=== PATIENT | male | born 1995 | race African-American/Black ===

== ENCOUNTER 2019-05-05 19:08 | Emergency (ER) | payer OTHER ==
[~2019-05-05] VITALS: Ht 175.3 cm; Wt 136.1 kg
--- NOTE | 2019-05-05 19:35 | NUR ---
ED Nurse Note: pt walked in c/o nasal congestion for couple of months, pt reports pain in the orbital and nasal area when he sneezes alot. pt denies cough nor fever. pt aA&ox4, skin warm and dry, resp even and unlabored on RA, noted mild nasal congestion, airway intact, will cont monitor.
[2019-05-05 19:36] VITALS: BP 115/76
--- NOTE | 2019-05-05 19:56 | Emergency Room Report ---
History of Present Illness General Chief Complaint: Flu Like Symptoms Source: Patient Present Illness HPI 24 YO male presents to the ED c/o nasal congestion and sneezing. Reports has been going on for years. He has never been evaluated for it. Does not use any OTC medications. Denies fevers or chills. PT. reports increased pressure in the sinuses and ears. He denies pain. Denies neck pain /stiffness, or photophobia. Denies purulent d/c. No other aggravating or relieving factors. Allergies: Coded Allergies: No Known Allergies (Unverified , 05/05/19) Patient History Past Medical History: see triage record Past Surgical History: none Pertinent Family History: none Immunizations: UTD Reviewed Nursing Documentation: PMH: Agreed; PSxH: Agreed Nursing Documentation-PMH Past Medical History: No Stated History Review of Systems All Other Systems: negative except mentioned in HPI Physical Exam Vital Signs Date Time Temp Pulse Resp B/P (MAP) Pulse Ox O2 Delivery O2 Flow Rate FiO2 05/05/19 19:20 98.1 68 16 115/76 (89) 96 Room Air Sp02 EP Interpretation: reviewed, normal General Appearance: no apparent distress, alert, GCS 15, non-toxic Head: normocephalic, atraumatic Eyes: bilateral eye normal inspection, bilateral eye PERRL, bilateral eye EOMI ENT: hearing grossly normal, normal pharynx, normal voice, TMs + canals normal , uvula midline, moist mucus membranes, nasal congestion - bilaterally, clear rhinorrhea, other - TTP to the bilateral frontal and maxillary sinuses. Neck: full range of motion, no meningismus, no bony tend Respiratory: chest non-tender, lungs clear, normal breath sounds, no respiratory distress, no wheezing, speaking full sentences Cardiovascular #1: regular rate, rhythm, no edema Musculoskeletal: back normal, gait/station normal, normal range of motion, non- tender Neurologic: alert, oriented x3, responsive, motor strength/tone normal, sensory intact, speech normal, grossly normal Psychiatric: judgement/insight normal Skin: no rash Lymphatic: no adenopathy Medical Decision Making PA Attestation Dr. Bazzi is my supervising Physician whom patient management has been discussed with. Diagnostic Impression: Primary Impression: Rhinitis Qualified Codes: J30.9 - Allergic rhinitis, unspecified Additional Impression: Sinusitis chronic, frontal ER Course 24 YO male presents to the ED c/o nasal congestion and sneezing. Reports has been going on for years. He has never been evaluated for it. Does not use any OTC medications. Denies fevers or chills. PT. reports increased pressure in the sinuses and ears. He denies pain. Denies neck pain /stiffness, or photophobia. Denies purulent d/c. No other aggravating or relieving factors. Ddx considered but are not limited to URI, pneumonia, PE, strep pharyngitis, meningitis, Sinusitis, rhinitis Vital signs: Pt. is afebrile, the remaining VS are WNL H&PE are most consistent with chronic sinusitis/rhinitis most likely secondary to allergies. No meningeal signs, oropharynx is not involved, no evidence of bacterial infection at this time. Pt. NAD, non-toxic in appearance. ORDERS: none required at this time, the diagnosis is clinical ED INTERVENTIONS: None required at this time. -I do not identify an emergent condition at this time. With current presentation , pt. is stable for close outpatient follow up and conservative treatment. D/ w pt. to return promptly to ED with worsening or new symptoms.- Pt. verbalizes' understanding and agreement with proposed treatment plan. DISCHARGE: At this time pt. is stable for d/c to home. Will provide printed patient care instructions, and any necessary prescriptions. Care plan and follow up instructions have been discussed with the patient prior to discharge. Last Vital Signs Date Time Temp Pulse Resp B/P (MAP) Pulse Ox O2 Delivery O2 Flow Rate FiO2 05/05/19 19:36 98.1 68 16 115/76 96 Room Air Disposition: HOME, SELF-CARE Condition: Stable Scripts Cetirizine Hcl* (ZYRTEC*) 10 Mg Tablet 10 MG ORAL DAILY, #30 TAB 0 Refills Prov: Kiesha Gan 05/05/19 Oxymetazoline HCl (Afrin) 15 Ml [place] 2 SPRAYS NASAL TWICE A DAY, #15 SPRAY Do not use for more than 3 consecutive days Prov: Kiesha Gan 05/05/19 Referrals: [facility] Patient Instructions: Sinusitis, Child Additional Instructions: Take medications as directed. Do not use for more than 3 consecutive days Follow up with a Primary Care Provider in 3-5 days, even if your symptoms have resolved. --Please review list of primary care clinics, if you do not already have a primary care provider Return sooner to ED if new symptoms occur, or current symptoms become worse. - Please note that this Emergency Department Report was dictated using [employer] gig operator technology software, occasionally this can lead to erroneous entry secondary to interpretation by the dictation equipment. Kiesha Gan May 05, 2019 19:56
[2019-05-05] MEDS ORDERED: ZYRTEC10 MG ORAL (20:04)
[2019-05-05] MEDS ORDERED: AFRIN NASAL SPR30 ML NASAL (20:04)
[2019-05-05 20:10] VITALS: BP 115/76
--- NOTE | 2019-05-05 20:10 | NUR ---
ED Nurse Note: pt cleared to be d/c per er provider, pt discharge and aftercare instruction provided w/ prescription, pt education done via discussion and handout, pt advised to follow up with pcp or return to ed if changes in condition, vss, ambulatory w/ steady gait, pt verbalized understanding, pt left w/ all belongings.
== END 2019-05-05 21:10 | disposition home or self-care (01) ==
LOC: EMR 19:57
DX: J32.1 Chronic frontal sinusitis (principal); J30.9 Allergic rhinitis, unspecified
CPT/HCPCS: 99282

== ENCOUNTER 2020-04-21 22:23 | Emergency (ER) | payer OTHER ==
[~2020-04-21] VITALS: Ht 175.3 cm; Wt 145.1 kg
[~2020-04-21 22:23] MED LIST: AFRIN NASAL SPR30 ML NASAL; ZYRTEC10 MG ORAL
[2020-04-21 22:35] VITALS: BP 122/79
--- NOTE | 2020-04-21 22:35 | NUR ---
ED Nurse Note: Patient walked in from home d/t dry mouth for 4 weeks and urinary frequency. Patient aao x 4 and ambulatory with steady gait. Patient also c/o bilateral earache 01/27. Patient placed on wafer substrate tester. No acute distress noted during assessment.
--- NOTE | 2020-04-21 22:41 | Emergency Room Report ---
History of Present Illness General Chief Complaint: General Complaint Source: Patient Present Illness [facility] This is a morbidly obese 25-year-old male with no past medical history. He presents with chief complaint of dry mouth, thirsty, frequent urination. Onset for last few weeks but worse in the last week. [place] tired. No fever chills. Also his mouth very dry and irritated. He said it worse when he drink water because it matthews his mouth. He said he urinates frequently throughout the day. No family history of diabetes. Denies any other complaint. He said he has weight loss and last week. Allergies: Coded Allergies: No Known Allergies (Unverified , 04/21/20) COVID-19 Screening Contact w/high risk pt: No Experienced COVID-19 symptoms?: No COVID-19 Testing performed TAVERN OPERATOR: No Patient History Past Medical History: see triage record, old chart reviewed Past Surgical History: none Pertinent Family History: none Social History: Denies: smoking Immunizations: other Reviewed Nursing Documentation: PMH: Agreed; PSxH: Agreed Nursing Documentation-PMH Past Medical History: No Stated History Review of Systems Constitutional: Reports: malaise Eye: Denies: eye pain, blurred vision ENT: Denies: ear pain, nose congestion, throat swelling Respiratory: Denies: cough, shortness of breath Cardiovascular: Denies: chest pain, palpitations Gastrointestinal: Denies: abdominal pain, diarrhea, nausea, vomiting Musculoskeletal: Denies: back pain, joint pain Skin: Denies: rash Neurological: Denies: headache, numbness Endocrine: Reports: increased thirst, increased urine Hematologic/Lymphatic: Denies: easy bruising All Other Systems: negative except mentioned in HPI Physical Exam Vital Signs Date Time Temp Pulse Resp B/P (MAP) Pulse Ox O2 Delivery O2 Flow Rate FiO2 04/21/20 22:29 98.6 108 20 115/80 (92) 95 Room Air Vitals normal Sp02 EP Interpretation: reviewed, normal General Appearance: well appearing, no apparent distress, alert, obese Head: normocephalic, atraumatic Eyes: bilateral eye PERRL, bilateral eye EOMI ENT: hearing grossly normal, normal pharynx, dry mucus membranes, other - Tongue: Very dry with irritation Neck: full range of motion, supple, no meningismus Respiratory: chest non-tender, lungs clear, normal breath sounds Cardiovascular #1: regular rate, rhythm, no murmur Gastrointestinal: normal bowel sounds, non tender, no mass, no organomegaly, no bruit, non-distended Musculoskeletal: back normal, normal range of motion, gait/station normal Psychiatric: mood/affect normal Medical Decision Making Diagnostic Impression: Primary Impression: New onset type 2 diabetes mellitus Additional Impressions: Hyperglycemia due to type 2 diabetes mellitus Qualified Codes: E11.65 - Type 2 diabetes mellitus with hyperglycemia Morbid obesity with BMI of 45.0-49.9, adult UTI (urinary tract infection) Qualified Codes: N30.00 - Acute cystitis without hematuria ER Course This patient presents with symptom presents with new onset diabetes. Blood sugar is very high. He was 747. No evidence of DKA. He does have bacteria in his urine. I gave him Rocephin here. After 3 L of fluid and a total of 30 units of insulin, blood sugar is still very high. I discussed the case with Dr. Hays for the patient for transfer to [facility] for further work-up. Last Vital Signs Date Time Temp Pulse Resp B/P (MAP) Pulse Ox O2 Delivery O2 Flow Rate FiO2 04/21/20 22:29 98.6 108 20 115/80 (92) 95 Room Air Status: improved Disposition: SHORT-TERM HOSP Condition: Stable Chris Nicolas MD Apr 21, 2020 22:41
--- NOTE | 2020-04-21 22:50 | NUR ---
ED Nurse Note: Fingerstick glucose registered critical "HI" unknown numerical result, ERMD informed and aware.
--- NOTE | 2020-04-21 22:55 | NUR ---
ED Nurse Note: Blood and urine sent to lab
[2020-04-21 22:59] LABS: BASOPHILS % (AUTO) 1.9 % (0.0-2.0); EOSINOPHILS % (AUTO) 1.7 % (0.0-3.0); HEMATOCRIT 48.1 % (42.0-52.0); HEMOGLOBIN 15.5 G/DL (14.2-18.0); LYMPHOCYTES % (AUTO) 24.9 % (20.0-45.0); MEAN CORPUSCULAR VOLUME 82 FL (80-99); MONOCYTES % (AUTO) 9.1 % (1.0-10.0); NEUTROPHILS % (AUTO) 62.3 % (45.0-75.0); PLATELET COUNT 254 K/UL (150-450); RED BLOOD COUNT 5.87 M/UL (4.70-6.10); RED CELL DISTRIBUTION WIDTH 13.6 % (11.6-14.8); WHITE BLOOD COUNT 9.1 K/UL (4.8-10.8)
[2020-04-21 23:00] LABS: APPEARANCE,URINE CLEAR; BILIRUBIN, URINE NEGATIVE (NEGATIVE); COLOR,URINE PALE YELLOW; GLUCOSE, URINE (UA) 4+ (NEGATIVE); KETONES,URINE 2+ (NEGATIVE); LEUKOCYTE ESTERASE ,URINE NEGATIVE (NEGATIVE); NITRITE,URINE POSITIVE (NEGATIVE); PH,URINE 5 (4.5-8.0); PROTEIN,URINE NEGATIVE (NEGATIVE); UROBILINOGEN,URINE NORMAL MG/DL (0.0-1.0)
[2020-04-21 23:17] LABS: ANION GAP 12 mmol/L (5-15); BLOOD UREA NITROGEN 8 mg/dL (7-18); CARBON DIOXIDE 28 MMOL/L (21-32); CHLORIDE 86 MMOL/L (98-107); CREATININE 1.3 MG/DL (0.55-1.30); POTASSIUM 3.9 MMOL/L (3.5-5.1); SODIUM 126 MMOL/L (136-145)
[2020-04-21] MEDS ORDERED: cefTRIAXone 1 GM in NS 55 ML IVPB ONE (23:30)
[2020-04-21] MEDS ORDERED: Insulin Human Regular 100units/ml 3ml IV ONE (23:45)
[2020-04-22] MEDS ORDERED: Insulin Human Regular 100units/ml 3ml IV ONE ×2 (01:00→02:15)
--- NOTE | 2020-04-22 04:36 | NUR ---
ED Nurse Note: Report given to CAROLE Nguyen at [facility].
[2020-04-22 05:58] VITALS: BP 105/74
--- NOTE | 2020-04-22 05:58 | NUR ---
ER DISCHARGE NOTE: Patient is cleared to be transferred to [facility] per ERMD, pt is aox4, on room air, with stable vital signs. Count includes the [facility] ambulance unit 113 given patient packet. Patient stable and ambulatory upon departure. Patient took all belongings. No acute distress noted during transfer.
== END 2020-04-22 05:58 | disposition short-term general hospital (02) ==
LOC: EMR 22:44
DX: E11.65 Type 2 diabetes mellitus with hyperglycemia (principal); N30.00 Acute cystitis without hematuria; E66.01 Morbid (severe) obesity due to excess calories; Z68.42 Body mass index [BMI] 45.0-49.9, adult
CPT/HCPCS: 36415; 80048; 81001; 82962; 85025; 87086; 96361; 96365; 96375; 96376; J0696; J1815; J7030; Z7502; 99284